=== PATIENT | female | born 1960 | race Caucasian/White ===

== ENCOUNTER 2018-05-18 00:37 | Emergency (ER) | payer BC ==
[2018-05-18] MEDS ORDERED: Ketorolac 60 MG/2 ML SDV IM ONE (00:40)
[2018-05-18] MEDS ORDERED: Ondansetron 8 MG Tab.DIS PO ONE (00:41)
--- NOTE | 2018-05-18 01:41 | EDM.PDOC ---
ED HPI GENERAL MEDICAL PROBLEM - General Chief Complaint: Headache Stated Complaint: MIGRAINE Time Seen by Provider: 05/18/18 00:37 Source of Information: Reports: Patient, Family History Limitations: Reports: Other (H/A) - History of Present Illness INITIAL COMMENTS - FREE TEXT/NARRATIVE: 58 y.o.w.f with a h/o Migraine H/A came with her by Wheelchair to the ed because of excruciating biltateral temporal Headache. Not the worst headache ever. Her gave her Imitrex IM [employer], which made here H/A to get worse. Pt is bending foreword due to H/A and was vomiting. Pt is a poor historian, H&P was given by her . No trauma or any other acute medical issues. Pt has those event a bout twice a year. BP 116/61 RR 18 Pulse ox 100% on RA Temp 36.7 Pulse 84 BPM Onset: Sudden Onset Date: 05/17/18 Onset Time: 21:00 Duration: Hour(s):, Getting Worse, Intermittent Location: Reports: Face Quality: Reports: Burning, Dull, Pressure, Same as Previous Episode Severity: Moderate Improves with: Reports: Medication Worsens with: Reports: Other (light), Movement Context: Reports: Other (H/O Migraine headache) Associated Symptoms: Reports: Nausea/Vomiting Treatments [employer]: Reports: Other (see below) (Imitrex IM) - Related Data Allergies Allergy/AdvReac Type Severity Reaction Status Date / Time No Known Allergies Allergy Verified 05/18/18 02:45 Home Meds: Home Meds Metoclopramide HCl [Reglan] 10 mg PO Q6HR PRN #12 tablet 02/27/16 [Rx] Amitriptyline HCl 25 mg PO ASDIRECTED 02/28/16 [History] SUMAtriptan Succinate [Sumatriptan Succinate] 25 mg PO ASDIRECTED PRN 02/28/16 [ History] Ketorolac [Toradol] 10 mg PO Q6H PRN 05/18/18 [History] SUMAtriptan Succinate [Sumatriptan Succinate] 1 injection SQ ASDIRECTED PRN [History] Past Medical History Neurological History: Reports: Migraines ED ROS ENT - Review of Systems Review Of Systems: Unable To Obtain (due to severe H/A and vomiting) ED EXAM, ENT - Physical Exam Exam: See Below Exam Limited By: Other (headache, vomitting) General Appearance: Alert, WD/WN, Moderate Distress Eye Exam: Bilateral Eye: Normal Inspection Ears: Normal External Exam Nose: Normal Inspection, Normal Mucousa Mouth/Throat: Normal Inspection, Normal Gums, Normal Lips, Normal Oropharynx Head: Atraumatic, Normocephalic Neck: Normal Inspection, Supple, Non-Tender, Full Range of Motion Respiratory/Chest: No Respiratory Distress, Lungs Clear, Normal Breath Sounds, No Accessory Muscle Use, Chest Non-Tender Cardiovascular: Normal Peripheral Pulses, Regular Rate, Rhythm, No Edema, No Gallop, No JVD, No Murmur, No Rub GI/Abdominal: Normal Bowel Sounds, Soft, Non-Tender, No Organomegaly, No Distention, No Abnormal Bruit, No Mass, Pelvis Stable (Female) Exam: Deferred Rectal (Female) Exam: Deferred Back: Normal Inspection, Full Range of Motion Extremities: Normal Inspection, Normal Range of Motion, Non-Tender, No Pedal Edema, Normal Capillary Refill Neurological: Alert, Oriented, CN II-XII Intact, Normal Cognition, Normal Gait, No Motor/Sensory Deficits Psychiatric: Normal Affect, Normal Mood Skin: Warm, Dry, Intact, Normal Color, No Rash Lymphatic: No Adenopathy Course - Vital Signs Text/Narrative:: 58 y.o.w.f with a h/o Migraine H/A came with her by Wheelchair to the ed because of excruciating biltateral temporal Headache. Not the worst headache ever. Her gave her Imitrex IM [employer], which made here H/A to get worse. Pt is bending foreword due to H/A and was vomiting. Pt is a poor historian, H&P was given by her . No trauma or any other acute medical issues. Pt has those event a bout twice a year. BP 116/61 RR 18 Pulse ox 100% on RA Temp 36.7 Pulse 84 BPM PE: 58 y.o.w.f with H/A and nausea Impression: Classic migraine Headache. Tx: Toradol, Zofran Reexam: Improved 80%, pt could walk independently, requested to be D/C'd to home with Plan: D/C with instructions Last Recorded V/S: Last Vital Signs Temp 36.4 C 05/18/18 01:10 Pulse 92 05/18/18 01:40 Resp 16 05/18/18 01:40 BP 122/68 05/18/18 01:40 Pulse Ox 100 05/18/18 01:40 - Orders/Labs/Meds Meds: Medications Discontinued Medications Generic Name Dose Route Start Last Admin Trade Name Alissa PRN Reason Stop Dose Admin Ketorolac Tromethamine 60 mg 05/18/18 00:40 05/18/18 00:56 Toradol IM 05/18/18 00:41 60 mg ONETIME ONE Administration Ondansetron HCl 8 mg 05/18/18 00:41 05/18/18 00:56 Zofran Odt PO 05/18/18 00:42 8 mg ONETIME ONE Administration Departure - Departure Time of Disposition: 01:42 Disposition: Home, Self-Care 01 Condition: Good Clinical Impression: Migraine Qualifiers: Migraine type: without aura Status migrainosus presence: without status migrainosus Intractability: not intractable Qualified Code(s): G43.009 - Migraine without aura, not intractable, without status migrainosus - Discharge Information Instructions: Ondansetron oral dissolving tablet Referrals: Judith Meraz, [employer] [Primary Care Provider] - Forms: ED Department Discharge Additional Instructions: Please cont your meds, please take zofran for nausea.Please f/u, come back if your symptoms get worse acutely
[2018-05-18] MEDS ORDERED: Ondansetron 4 MG Tab.DIS PO ONE (01:43)
[2018-05-18 02:49] VITALS: BP 122/68
== END 2018-05-18 01:55 | disposition home or self-care (01) ==
LOC: FB.ED 00:37
DX: G43.109 Migraine with aura, not intractable, without status migrainosus (principal); Z79.899 Other long term (current) drug therapy
CPT/HCPCS: 96372; 99282; A9270; J1885